=== PATIENT | female | born 1975 | race Two or more races ===

== ENCOUNTER 2016-12-04 10:57 | Emergency (ER) | payer OTHER ==
[2016-12-04] MEDS ORDERED: KETOROLAC TROMETHAMINE 30 MG/ML 1 ML VIAL ONE (11:43)
[2016-12-04] MEDS ORDERED: ONDANSETRON 4 MG ODT TAB ONE (11:43)
== END 2016-12-04 11:59 | disposition home or self-care (01) ==
LOC: ED 10:57
DX: R51 Headache (principal); J32.9 Chronic sinusitis, unspecified